=== PATIENT | female | born 1995 | race Caucasian/White ===

== ENCOUNTER 2017-04-03 21:13 | Emergency (ER) | payer SELFPAY ==
[2017-04-03] MEDS ORDERED: LIDOCAINE 2% VISCOUS SOLN 20 ML UDCUP PO ONE (21:56)
[2017-04-03] MEDS ORDERED: MAG HYDROX/AL HYDROX/SIMETH SUSP 30 ML UDCUP PO ONE (21:56)
--- NOTE | 2017-04-03 22:00 | ER Document Report ---
ED GI/ - General Mode of Arrival: Ambulatory Information source: Patient TRAVEL OUTSIDE OF THE [place] IN LAST 30 DAYS: No <BRETT FONTANEZ - Last Filed: 04/03/17 21:56> <JONNY CHANG - Last Filed: 04/04/17 00:14> - General Chief Complaint: Epigastric Pain Stated Complaint: ABDOMINAL AND BACK PAIN Time Seen by Provider: 04/03/17 21:49 Notes: Patient is a 21-year-old female presenting to emergency department for right upper quadrant epigastric pain. Patient states her symptoms been onset 1 week. Patient's symptoms come on as soon as she starts eating and patient states that she cannot finish a meal. Patient states that fast foods make the pain worse however she also states that bread causes the pain to come on as well. Patient describes pain as sharp. Patient is here in town with the [employer] which she works with her family at. Patient has no medical history , no surgical history, does not take any regular medications. Patient's last menstrual period was 03/13/2017. She has no known drug allergies. (BRETT FONTANEZ) - Related Data Allergies/Adverse Reactions: No Known Allergies Allergy (Unverified 04/03/17 21:23) Past Medical History - General Information source: Patient - Social History Smoking Status: Current Every Day Smoker Cigarette use (# per day): Yes - 1 PPD Chew tobacco use (# tins/day): No Smoking Education Provided: Yes Frequency of alcohol use: None Drug Abuse: None Family History: None Patient has suicidal ideation: No Patient has homicidal ideation: No - Medical History Medical History: Negative Surgical Hx: Negative <BRETT FONTANEZ - Last Filed: 04/03/17 21:56> Review of Systems - Review of Systems Constitutional: No symptoms reported EENT: No symptoms reported Cardiovascular: No symptoms reported Respiratory: No symptoms reported Gastrointestinal: See HPI, Abdominal pain, Nausea Genitourinary: No symptoms reported Female Genitourinary: No symptoms reported Musculoskeletal: No symptoms reported Skin: No symptoms reported Hematologic/Lymphatic: No symptoms reported Neurological/Psychological: No symptoms reported -: Yes All other systems reviewed and negative <BRETT FONTANEZ - Last Filed: 04/03/17 21:56> Physical Exam - Vital signs Interpretation: Normal <BRETT FONTANEZ - Last Filed: 04/03/17 21:56> <JONNY CHANG - Last Filed: 04/04/17 00:14> - Vital signs Vitals: Temp Pulse Resp BP Pulse Ox 98.7 F 89 20 127/69 H 98 04/03/17 21:25 04/03/17 21:25 04/03/17 21:25 04/03/17 21:25 04/03/17 21:25 - Notes Notes: GENERAL: Alert, interacts well. Mild distress. HEAD: Normocephalic, atraumatic. EYES: Appear normal. Pupils equal, round, and reactive to light. ENT: Moist mucus membranes, tongue midline. NECK: Full range of motion. Supple. Trachea midline. LUNGS: Clear to auscultation bilaterally, no wheezes, rales, or rhonchi. No respiratory distress. HEART: Regular rate and rhythm. No murmurs, gallops, or rubs. ABDOMEN: Soft, tenderness to palpation mostly to the epigastric region and slight tenderness to palpation over the right upper quadrant. Non-distended. Normal bowel sounds. EXTREMITIES: Moves all 4 extremities spontaneously. Normal strength. No edema. NEUROLOGICAL: Alert and oriented x3. Normal speech. No focal neurological deficits. GCS 15. PSYCH: Normal affect, normal mood. SKIN: Warm, dry, normal turgor. No rashes or lesions noted. (BRETT FONTANEZ) Course <BRETT FONTANEZ - Last Filed: 04/03/17 21:56> - Laboratory Result Diagrams: 04/03/17 22:35 04/03/17 23:05 - Diagnostic Test Radiology reviewed: Image reviewed, Reports reviewed - Cholelithiasis without cholecystitis <JONNY CHANG - Last Filed: 04/04/17 00:14> - Re-evaluation Re-evalutation: 04/04/17 00:00 Patient's gallbladder ultrasound shows multiple stones with no gallbladder wall thickening, no pericholecystic fluid, negative Nicholson's sign. Liver enzymes are in the low normal range and lipase is low. I spoke with the patient, the GI cocktail did help some of her discomfort go away. However when I went into see her she was eating beef jerky and was beginning to have pain again. I am not sure if her pain is from stimulating the gallbladder to contract or from the acid reflux that she has. (JONNY CHANG) - Vital Signs Vital signs: Temp Pulse Resp BP Pulse Ox 98.7 F 89 20 127/69 H 98 04/03/17 21:25 04/03/17 21:25 04/03/17 21:25 04/03/17 21:25 04/03/17 21:25 - Laboratory Laboratory results interpreted by me: 04/03/17 21:35 Urine Urobilinogen 4.0 H Ur Leukocyte Esterase SMALL H Discharge <BRETT FONTANEZ - Last Filed: 04/03/17 21:56> <JONNY CHANG - Last Filed: 04/04/17 00:14> - Discharge Clinical Impression: Cholelithiasis Qualifiers: Cholelithiasis location: gallbladder Cholecystitis presence: without cholecystitis Biliary obstruction: without biliary obstruction Qualified Code(s) : K80.20 - Calculus of gallbladder without cholecystitis without obstruction Gastroesophageal reflux disease Qualifiers: Esophagitis presence: without esophagitis Qualified Code(s): K21.9 - Gastro- esophageal reflux disease without esophagitis Condition: Stable Disposition: HOME, SELF-CARE Additional Instructions: Gallbladder Disease: Your evaluation shows evidence of gallbladder disease. The gallbladder is a pouch under the liver which stores bile. Stones, infection, or irritation of the gallbladder cause attacks of pain. Certain foods -- fats in particular -- may provoke attacks. The usual treatment for gallbladder disease is surgical removal of the gallbladder -- called a cholecystectomy. You will be referred to a physician qualified to advise you on the best treatment for your problem. Hospitalization is not necessary. Take clear liquids only until you are painfree. After that, you should stay on a low-fat diet, with frequent SMALL meals. Call the doctor or return at once if you develop severe pain, repeated vomiting, fever, or jaundice (a yellow color in the skin and whites of the eyes) . Low-Fat Diet: The physician has recommended a low-fat diet. This diet is often used for gallbladder or pancreas problems. Your meals should be high-carbohydrate (potato, apples, noodles, breads, vegetables). Eat fish or skinless chicken (boiled or baked rather than fried) for protein. Beans and peas are good sources of fat-free protein. Soups are usually very low-fat. Don't eat anything fried. Avoid red meats. Avoid most dairy products. Skim milk and non-fat yogurt are OK. Most popular cheeses are very high-fat. Don't add butter or sauces -- use lemon or pepper instead. If you like salads, use one of the new "non-fat" dressings. "Fast Food" is "fat food." There is virtually nothing from a typical fast- food restaurant that you can eat. Fish patties and chicken nuggets are almost always deep-fat fried. "Special Sauces" are mostly fat. Reflux Disease (GERD): Gastro-Esophageal Reflux Disease (GERD) is caused by stomach acid refluxing back up into the esophagus. The valve at the end of the esophagus may be weak. This is common in persons with a hiatal hernia. GERD symptoms can include indigestion, chest pain, heartburn, or food "sticking." Certain foods, alcohol, and aspirin can make GERD worse. Treatment depends on the severity. Usually, antacids or acid-suppressing medicines are used. When the esophagus is acutely inflamed, the physician will often prescribe membrane-protective drugs such as Carafate. Some patients benefit from medication such as Reglan that tightens the valve at the top of the stomach. Avoid those foods that bring on your symptoms. For many people, these foods are coffee, chocolate, onions, garlic, and carbonated drinks. Don't use alcohol, aspirin, caffeine, or tobacco. Don't eat late at night -- within 4 hours of bedtime. Don't over-eat. If necessary, elevate the head of your bed about 4 inches so that stomach acid will not roll up into your esophagus. Call the doctor if you develop severe chest pain, inability to swallow fluids, fever, or worsening symptoms. EAT A LOW FAT DIET OF SMALL MEALS. TAKE PRILOSEC OTC ONCE DAILY. TAKE ANTI-ACIDS BETWEEN MEALS AND AT BEDTIME FOR REFLUX SYMPTOMS. ELEVATE THE HEAD OF THE BED OR SLEEP SEMI-UPRIGHT IN A RECLINER. TAKE THE PAIN MEDICATION IF NEEDED. FOLLOW UP WITH [facility] OR WITH A SURGEON WHEN YOU RETURN HOME. RETURN TO THE EMERGENCY ROOM IF ANY NEW OR WORSENING SYMPTOMS. Prescriptions: Hydrocodone/Acetaminophen [Hydrocodon-Acetaminophen 5-325] 1 each PO Q4 PRN #15 tablet PRN Reason: For Pain Scribe Attestation: 04/04/17 00:04 I personally performed the services described in the documentation, reviewed and edited the documentation which was dictated to the scribe in my presence, and it accurately records my words and actions. (JONNY CHANG) Scribe Documentation - Scribe Written by Scribe:: Marvel Higgins, 04/03/2017 2200 acting as scribe for :: Hortencia <BRETT FONTANEZ - Last Filed: 04/03/17 21:56>
[2017-04-03 22:12] LABS: APPEARANCE,URINE SLIGHTLY-CLOUDY; BILIRUBIN,URINE NEGATIVE (NEGATIVE); GLUCOSE, URINE NEGATIVE (NEGATIVE); KETONES,URINE NEGATIVE (NEGATIVE); LEUKOCYTE ESTERASE,URINE SMALL (NEGATIVE); NITRITE,URINE NEGATIVE (NEGATIVE); PROTEIN,URINE NEGATIVE (NEGATIVE); URINE SPECIFIC GRAVITY 1.028
[2017-04-03 22:41] LABS: ABSOLUTE EOSINOPHILS # (AUTO) 0.3 10^3/uL (0.0-0.6); ABSOLUTE LYMPHOCYTES (AUTO) 2.3 10^3/uL (0.5-4.7); ABSOLUTE MONOCYTES (AUTO) 0.7 10^3/uL (0.1-1.4); BASOPHILS % (AUTO) 0.5 % (0-2); EOSINOPHILS % (AUTO) 2.5 % (0-6); HEMATOCRIT 41.7 % (36.0-47.0); HEMOGLOBIN 14.5 g/dL (12.0-15.5); HGB HCT DIFFERENCE 1.8; LYMPHOCYTES % (AUTO) 21.9 % (13-45); MEAN CORPUSCULAR HGB CONC 34.8 g/dL (32.0-36.0); MEAN CORPUSCULAR VOLUME 89 fl (80-97); MONOCYTES % (AUTO) 7.2 % (3-13); RED BLOOD COUNT 4.69 10^6/uL (3.72-5.28); RED CELL DISTRIBUTION WIDTH 13.8 % (11.5-14.0); SEGMENTED NEUTROPHILS % (AUTO) 67.9 % (42-78); WHITE BLOOD COUNT 10.4 10^3/uL (4.0-10.5)
[2017-04-03 22:47] LABS: BACTERIA,URINE 1+ /HPF
--- NOTE | 2017-04-03 23:33 | RADIOLOGY REPORT (SQ) ---
EXAM DESCRIPTION: U/S ABDOMEN LIMITED W/O DOP COMPLETED DATE/TIME: 04/03/2017 11:01 pm REASON FOR STUDY: epigastric pain, food provoked pain COMPARISON: None. TECHNIQUE: Dynamic and static grayscale images acquired of the right upper quadrant and recorded on PACS. Additional selected color Doppler and spectral images recorded. LIMITATIONS: Study limited due to acoustical interference from fat or from air in the bowel. FINDINGS: PANCREAS: Parts or all of the pancreas poorly seen secondary to acoustical interference fr om fat or from air in the bowel. LIVER: Echotexture is coarse with increased echogenicity consistent with fatty infiltration. No mass es. LIVER VASCULATURE: Normal directional flow of the main portal vein and hepatic veins. GALLBLADDER: Numerous gallstones. Normal wall thickness. No pericholecystic fluid. ULTRASOUND-DETECTED MATOS'S SIGN: Negative. INTRAHEPATIC DUCTS AND COMMON DUCT: CBD and intrahepatic ducts normal caliber. No filling defects. INFERIOR VENA CAVA: Normal flow. AORTA: No aneurysm. RIGHT KIDNEY: Normal size. Normal echogenicity. No solid or suspicious masses. No hydronephrosis. No calcifications. PERITONEAL CAVITY AND RIGHT PLEURAL SPACE: No ascites or effusions. OTHER: No other significant finding. IMPRESSION: Numerous gallstones. Normal wall thickness. No pericholecystic fluid. ULTRASOUND-DETECTED MATOS'S SIGN: Negative. TECHNICAL DOCUMENTATION: JOB ID: [id number] [employer]- All Rights Reserved
[2017-04-03 23:36] LABS: ALANINE AMINOTRANSFERASE 33 U/L (5-35); ALBUMIN 3.9 g/dL (3.7-5.6); ALKALINE PHOSPHATASE 94 U/L (50-135); ANION GAP 10 (5-19); ASPARTATE AMINO TRANSFERASE 20 U/L (5-30); BILIRUBIN,DIRECT 0.4 mg/dL (0.0-0.4); BILIRUBIN,TOTAL 0.4 mg/dL (0.2-1.3); BLOOD UREA NITROGEN 17 mg/dL (7-20); CALCIUM 9.7 mg/dL (8.4-10.2); CARBON DIOXIDE 27 mmol/L (22-30); CHLORIDE 106 mmol/L (98-107); CREATININE RESULT 0.87 mg/dL (0.52-1.25); GLUCOSE 76 mg/dL (75-110); LIPASE 155.1 U/L (23-300); POTASSIUM 4.5 mmol/L (3.6-5.0); SODIUM 142.6 mmol/L (137-145); TOTAL PROTEIN 6.7 g/dL (6.3-8.2)
[2017-04-04] MEDS ORDERED: HYDROCODONE/ACETAMINOPHEN 5-325 MG 6 TAB/DSPK PO PRN (00:10)
[2017-04-04] MEDS ORDERED: KETOROLAC TROMETHAMINE INJ/PF 30 MG/1 ML SDV IV ONE (00:10)
[2017-04-04 00:51] VITALS: BP 128/84
== END 2017-04-04 00:51 | disposition home or self-care (01) ==
LOC: ER 21:13
DX: K80.20 Calculus of gallbladder without cholecystitis without obstruction (principal); K21.9 Gastro-esophageal reflux disease without esophagitis; R10.13 Epigastric pain; M54.9 Dorsalgia, unspecified; F17.210 Nicotine dependence, cigarettes, uncomplicated
CPT/HCPCS: 99284; 96374; 36415; 83690; 84703; 85025; 80053; 81001; 76705; J3490; J1885